=== PATIENT | female | born 1980 | race Hispanic/Latino ===

== ENCOUNTER 2016-09-06 21:50 | Emergency (ER) | payer SELFPAY ==
[~2016-09-06] VITALS: Ht 162.6 cm; Wt 86.0 kg
[~2016-09-06 21:50] MED LIST: CLEOCIN300 MG PO; KEPPRA500 MG PO; MOTRIN800 MG PO; NORCO 5/3251 TABLET PO; TRAMADOL HCL50 MG PO
[2016-09-07] MEDS ORDERED: MOTRIN600 MG PO (00:28)
[2016-09-07] MEDS ORDERED: PERCOCET 5/31 TABLET PO (00:28)
[2016-09-07] MEDS ORDERED: SILVADENE20 GM TP (00:28)
[2016-09-07 01:29] VITALS: BP 144/79
== END 2016-09-07 01:31 | disposition home or self-care (01) ==
LOC: EME 21:50
PROC: 3E0234Z Introduction of Serum, Toxoid and Vaccine into Muscle, Percutaneous Approach (ICD-10-PCS; principal; 2016-09-06)
DX: T22.211A Burn of second degree of right forearm, initial encounter (principal); T23.201A Burn of second degree of right hand, unspecified site, initial encounter; T21.12XA Burn of first degree of abdominal wall, initial encounter; T31.0 Burns involving less than 10% of body surface; X10.2XXA Contact with fats and cooking oils, initial encounter; Z23 Encounter for immunization
CPT/HCPCS: 99281; 99285; J1885; J2270; J2405; J3010

== ENCOUNTER 2016-09-08 00:05 | Emergency (ER) | payer SELFPAY ==
[~2016-09-08] VITALS: Ht 162.6 cm; Wt 82.6 kg
[~2016-09-08 00:05] MED LIST changes: +MOTRIN600 MG PO; +PERCOCET 5/31 TABLET PO; +SILVADENE20 GM TP
[2016-09-08 00:39] LABS: EOSINOPHIL (%) 1.3 % (0-5); EOSINOPHIL COUNT 0.2 K/uL (0-0.3); HEMATOCRIT 38.2 % (36.0-46.0); IMMATURE GRANULOCYTE (%) 0.1 % (0.0-0.7); IMMATURE GRANULOCYTE COUNT 0.1 K/uL; MCH 27.7 PG (29.0-34.0); MCV 81.4 FL (83-99); MEAN PLAT.VOLUME 11.1 uM^3 (9.5-12.4); MONOCYTE (%) 7.5 % (3-12); MONOCYTE COUNT 0.8 K/uL (0-0.8); NEUTROPHIL (%) 73.3 % (45-76); NEUTROPHIL COUNT 8.2 K/uL (1.8-6.4); PLATELET COUNT 210 K/uL (156-360); RBC DIS.WIDTH-SD 40.9 % (39-53); RED BLOOD COUNT 4.69 M/uL (3.80-5.20); WHITE BLOOD COUNT 11.1 K/uL (4.1-10.2)
[2016-09-08 00:55] LABS: CHLORIDE 105 mEq/L (99-109); POTASSIUM 3.5 mEq/L (3.7-5.4); SODIUM 137 mEq/L (136-147)
[2016-09-08 00:56] LABS: GLUCOSE 100 mg/dL (70-99)
[2016-09-08 00:58] LABS: ANION GAP 7 MEQ/L (2-14)
[2016-09-08 01:00] LABS: GFR ESTIMATE (CALCULATED) > 59 mL/min/
[2016-09-08 01:01] LABS: UREA NITROGEN (BUN) 10 mg/dL (9-23)
[2016-09-08 01:58] LABS: CREATINE KINASE 113 IU/L (1-294)
[2016-09-08 04:17] VITALS: BP 138/80
== END 2016-09-08 04:18 | disposition designated cancer center or children's hospital, planned readmission (85) ==
LOC: EME 00:05
PROC: 2W2CX4Z Dressing of Right Lower Arm using Bandage (ICD-10-PCS; principal; 2016-09-08)
PROC: 2W23X4Z Dressing of Abdominal Wall using Bandage (ICD-10-PCS; 2016-09-08)
DX: T22.311A Burn of third degree of right forearm, initial encounter (principal); T21.02XA Burn of unspecified degree of abdominal wall, initial encounter; T31.0 Burns involving less than 10% of body surface; X10.2XXA Contact with fats and cooking oils, initial encounter; F17.200 Nicotine dependence, unspecified, uncomplicated
CPT/HCPCS: 80048; 81003; 82550; 85025; 99281; 99284

== ENCOUNTER 2017-04-10 23:58 | Emergency (ER) | payer OTHER ==
[~2017-04-10] VITALS: Ht 162.6 cm; Wt 77.2 kg
[2017-04-11 04:38] VITALS: BP 145/91
== END 2017-04-11 04:39 | disposition home or self-care (01) ==
LOC: EME 23:58
PROC: 0HQFXZZ Repair Right Hand Skin, External Approach (ICD-10-PCS; principal; 2017-04-10)
DX: S61.411A Laceration without foreign body of right hand, initial encounter (principal); W25.XXXA Contact with sharp glass, initial encounter
CPT/HCPCS: 99281; 99284